=== PATIENT | male | born 1955 | race Caucasian/White ===

== ENCOUNTER 2023-06-19 13:56 | Emergency (ER) | payer BC, SELFPAY ==
[2023-06-19 14:07] VITALS: BP 126/82; PULSE 74; RESP 18; TEMP 36.6; O2SAT 97
[2023-06-19 15:44] VITALS: BP 124/76; PULSE 71; RESP 18; O2SAT 96
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
== END 2023-06-19 18:05 | disposition home or self-care (01) ==
PROVIDERS: Emergency Provider Nurse Practitioner Acute Care
DX: R51.9 Headache, unspecified (principal); S01.81XA Laceration without foreign body of other part of head, initial encounter; Y93.55 Activity, bike riding; W19.XXXA Unspecified fall, initial encounter; V18.0XXA Pedal cycle driver injured in noncollision transport accident in nontraffic accident, initial encounter
CPT/HCPCS: 12011